=== PATIENT | male | born 1940 | race Caucasian/White ===

== ENCOUNTER 2018-02-02 13:03 | Inpatient (IN) | payer MEDICARE ==
[~2018-02-02] VITALS: Ht 177.8 cm; Wt 79.0 kg
[2018-02-02 13:29] LABS: BASOPHILS % (AUTO) 0.5 % (0.0-5.0); LYMPHOCYTES % (AUTO) 32.5 % (21.0-51.0); MEAN CORPUSCULAR HEMOGLOBIN 28.2 pg (27.0-33.0); MEAN CORPUSCULAR HGB CONC 33.8 g/dL (32.0-36.0); MEAN CORPUSCULAR VOLUME 83.3 fL (79-99); MONOCYTES % (AUTO) 7.7 % (3.0-13.0); NEUTROPHILS % (AUTO) 58.3 % (40.0-77.0); PLATELET COUNT (AUTO) 239 K/uL (130-400); RED BLOOD CELL COUNT(AUTO) 1.71 MIL/uL (4.50-6.20); RED CELL DISTRIBUTION WIDTH 18.4 % (11.0-15.5); WHITE BLOOD COUNT (AUTO) 6.3 K/uL (4.8-10.8)
[2018-02-02 13:39] LABS: CREATININE 1.4 mg/dL (0.5-1.5); POTASSIUM 4.3 mmol/L (3.5-5.1)
[2018-02-02 13:41] LABS: INR 1.09 (0.85-1.15); PARTIAL THROMBOPLASTIN TIME 28.1 SEC (26.3-35.5); PROTHROMBIN TIME 11.4 SEC (9.6-11.6)
[2018-02-02 13:49] LABS: HEMATOCRIT 14.3 % (42-54)
[2018-02-02 13:55] LABS: BILIRUBIN,TOTAL 0.3 mg/dL (0.2-1.0); CREATINE KINASE MB 1.1 ng/mL (0.5-3.6); TOTAL PROTEIN, SERUM 6.5 g/dL (6.0-8.3)
[2018-02-02] MEDS ORDERED: SODIUM CHLORIDE 0.9% 1000ML 1,000 ML IV ONE (14:40)
[2018-02-02] MEDS ORDERED: NITROGLYCERIN 0.4 MG SL TAB SL PRN (15:15)
[2018-02-02] MEDS ORDERED: GUAIFENESIN-DM 200/20 MG 10 ML PO PRN (15:15)
[2018-02-02] MEDS ORDERED: POTASSIUM CHLORIDE 20MEQ/100ML 100 ML IV PRN (15:15)
[2018-02-02] MEDS ORDERED: MORPHINE SULFATE 2 MG/ML 1ML SYG IV PRN (15:15)
[2018-02-02] MEDS ORDERED: MAG HYDROX/AL HYDROX/SIMETH ES 30 ML SUSP UDCUP PO PRN (15:15)
[2018-02-02] MEDS ORDERED: HYDRALAZINE HCL 20 MG/ML VIAL IV PRN (15:15)
[2018-02-02] MEDS ORDERED: ACETAMINOPHEN 325 MG TAB PO PRN ×2 (15:15)
[2018-02-02] MEDS ORDERED: LACTULOSE 20 GM/30 ML UDCUP PO PRN (15:15)
[2018-02-02] MEDS ORDERED: ACETAMINOPHEN-CODEINE 300/30MG TAB PO PRN ×2 (15:15)
[2018-02-02] MEDS ORDERED: ONDANSETRON HCL 4 MG/2 ML VIAL IV PRN (15:15)
[2018-02-02] MEDS ORDERED: LIDOCAINE HCL-MPF 1% 2ML VIAL IVP PRN (15:15)
[2018-02-02] MEDS ORDERED: POTASSIUM CHLORIDE 10% ELIXIR 20 MEQ/15 ML UDCUP PO PRN (15:15)
[2018-02-02 20:00] VITALS: BP 127/81
[2018-02-02] MEDS ORDERED: LISI1TAB11 PO (22:27)
[2018-02-02] MEDS ORDERED: PRAV20TA4 PO (22:27)
[2018-02-02] MEDS ORDERED: RIVA20TA PO (22:27)
[2018-02-02] MEDS: PANTOPRAZOLE SODIUM 80 MG in SODIUM CHLORIDE 0.9% 100 ML IV SCH (23:16)
[2018-02-02] MEDS: SODIUM CHLORIDE 0.9% 1000ML 1,000 ML IV SCH (23:19)
[2018-02-02 23:54] VITALS: BP 126/65
[2018-02-03] VITALS (20 sets, daily range): BP systolic 107–142; BP diastolic 57–74
[2018-02-03] MEDS ORDERED: SODIUM CHLORIDE 0.9% 250 ML IV ONE (00:01)
[2018-02-03] MEDS: SODIUM CHLORIDE 0.9% 1000ML 1,000 ML IV SCH (04:24)
[2018-02-03] MEDS: PANTOPRAZOLE SODIUM 80 MG in SODIUM CHLORIDE 0.9% 100 ML IV SCH ×2 (07:11→21:52)
[2018-02-03 07:18] LABS: CREATININE 1.4 mg/dL (0.5-1.5); POTASSIUM 4.1 mmol/L (3.5-5.1)
[2018-02-03 07:21] LABS: MEAN CORPUSCULAR HEMOGLOBIN 28.9 pg (27.0-33.0); MEAN CORPUSCULAR HGB CONC 34.2 g/dL (32.0-36.0); MEAN CORPUSCULAR VOLUME 84.6 fL (79-99); NUCLEATED RED BLOOD CELLS 0.1 % (0.0-0.19); PLATELET COUNT (AUTO) 196 K/uL (130-400); RED BLOOD CELL COUNT(AUTO) 2.95 MIL/uL (4.50-6.20); RED CELL DISTRIBUTION WIDTH 15.8 % (11.0-15.5); WHITE BLOOD COUNT (AUTO) 5.7 K/uL (4.8-10.8)
[2018-02-03] MEDS ORDERED: PROPOFOL 10 MG/ML 20ML VIAL IV ONE (08:04)
[2018-02-03] MEDS ORDERED: LIDOCAINE HCL 2% 20ML ONE (08:04)
[2018-02-03] MEDS ORDERED: EPINEPHRINE 1 MG/ML AMPULE ONE (08:16)
[2018-02-03] MEDS ORDERED: IPRATROPIUM/ALBUTEROL SULFATE 3 ML SOLUTION IH PRN (10:30)
[2018-02-03 18:56] LABS: HEMATOCRIT 23.6 % (42-54)
[2018-02-03] MEDS: ATORVASTATIN CALCIUM 10 MG TABLET PO SCH (20:42)
[2018-02-04 03:57] VITALS: BP 123/68
[2018-02-04 05:49] LABS: HEMATOCRIT 24.1 % (42-54); MEAN CORPUSCULAR HGB CONC 34.2 g/dL (32.0-36.0); MEAN CORPUSCULAR VOLUME 84.8 fL (79-99); PLATELET COUNT (AUTO) 159 K/uL (130-400); RED BLOOD CELL COUNT(AUTO) 2.84 MIL/uL (4.50-6.20); WHITE BLOOD COUNT (AUTO) 5.9 K/uL (4.8-10.8)
[2018-02-04 06:01] LABS: CREATININE 1.2 mg/dL (0.5-1.5); POTASSIUM 3.6 mmol/L (3.5-5.1)
[2018-02-04 08:11] VITALS: BP 124/62
[2018-02-04 12:04] VITALS: BP 138/84
[2018-02-04] MEDS: POTASSIUM CHLORIDE 20 MEQ ERTAB PO PRN ×2 (12:57→14:55)
[2018-02-04 16:14] VITALS: BP 150/78
[2018-02-04 19:55] VITALS: BP 139/81
[2018-02-04] MEDS: ATORVASTATIN CALCIUM 10 MG TABLET PO SCH (20:22)
[2018-02-04 23:35] VITALS: BP 156/64
[2018-02-05] MEDS: PANTOPRAZOLE SODIUM 80 MG in SODIUM CHLORIDE 0.9% 100 ML IV SCH (01:06)
[2018-02-05 04:00] VITALS: BP 154/80
[2018-02-05 05:38] LABS: HEMATOCRIT 22.5 % (42-54); MEAN CORPUSCULAR HEMOGLOBIN 30.2 pg (27.0-33.0); MEAN CORPUSCULAR HGB CONC 35.6 g/dL (32.0-36.0); MEAN CORPUSCULAR VOLUME 84.8 fL (79-99); PLATELET COUNT (AUTO) 151 K/uL (130-400); RED BLOOD CELL COUNT(AUTO) 2.66 MIL/uL (4.50-6.20); RED CELL DISTRIBUTION WIDTH 16.3 % (11.0-15.5); WHITE BLOOD COUNT (AUTO) 4.8 K/uL (4.8-10.8)
[2018-02-05 05:44] LABS: CREATININE 1.3 mg/dL (0.5-1.5); POTASSIUM 4.2 mmol/L (3.5-5.1)
[2018-02-05 08:05] VITALS: BP 152/87
[2018-02-05] MEDS ORDERED: LISINOPRIL 20 MG TABLET PO SCH (09:00)
[2018-02-05] MEDS ORDERED: HYDROCHLOROTHIAZIDE 25 MG TABLET PO SCH (09:00)
[2018-02-05] MEDS ORDERED: PANT40TA PO (09:57)
[2018-02-05 11:50] VITALS: BP 143/72
== END 2018-02-05 14:15 | disposition home or self-care (01) | DRG 378 ==
LOC: EDH 13:03 → EDHIP 15:05 → 3BH 19:42
PROVIDERS: ADMIT Internal Medicine; ATTEND Internal Medicine
PROC: 30233N1 Transfusion of Nonautologous Red Blood Cells into Peripheral Vein, Percutaneous Approach (ICD-10-PCS; principal; 2018-02-02)
PROC: 0DJ08ZZ Inspection of Upper Intestinal Tract, Via Natural or Artificial Opening Endoscopic (ICD-10-PCS; 2018-02-03)
DX: K92.2 Gastrointestinal hemorrhage, unspecified (principal); D62 Acute posthemorrhagic anemia; I48.91 Unspecified atrial fibrillation; Z79.01 Long term (current) use of anticoagulants; I10 Essential (primary) hypertension; E78.5 Hyperlipidemia, unspecified; K31.89 Other diseases of stomach and duodenum; F17.290 Nicotine dependence, other tobacco product, uncomplicated; Z88.0 Allergy status to penicillin
CPT/HCPCS: 36415; 36430; 71045; 80048; 80053; 82270; 82550; 82553; 83880; 84484; 85014; 85018; 85025; 85027; 85610; 85730; 86156; 86850; 86870; 86900; 86901; 86922; 93005; 94664; C9113; J0171; J2704; J3490; J7030; P9016

== ENCOUNTER 2018-11-12 08:52 | Day surgery (SDC) | payer MEDICARE ==
[2018-11-09 14:06] VITALS: BP 151/84
[2018-11-09 14:21] LABS: BASOPHILS % (AUTO) 0.6 % (0.0-5.0); EOSINOPHILS % (AUTO) 1.4 % (0.0-8.0); HEMATOCRIT 36.3 % (42-54); LYMPHOCYTES % (AUTO) 27.5 % (21.0-51.0); MEAN CORPUSCULAR HEMOGLOBIN 29.7 pg (27.0-33.0); MEAN CORPUSCULAR HGB CONC 33.5 g/dL (32.0-36.0); MEAN CORPUSCULAR VOLUME 88.7 fL (79-99); MONOCYTES % (AUTO) 7.4 % (3.0-13.0); NEUTROPHILS % (AUTO) 63.1 % (40.0-77.0); PLATELET COUNT (AUTO) 228 K/uL (130-400); RED BLOOD CELL COUNT(AUTO) 4.09 MIL/uL (4.50-6.20); RED CELL DISTRIBUTION WIDTH 15.6 % (11.0-15.5); WHITE BLOOD COUNT (AUTO) 6.3 K/uL (4.8-10.8)
[2018-11-09 14:29] LABS: CREATININE 1.5 mg/dL (0.5-1.5); POTASSIUM 4.1 mmol/L (3.5-5.1)
[2018-11-09 14:33] LABS: INR 1.02 (0.85-1.15); PARTIAL THROMBOPLASTIN TIME 29.7 SEC (26.3-35.5); PROTHROMBIN TIME 10.7 SEC (9.6-11.6)
[~2018-11-12] VITALS: Ht 175.3 cm; Wt 81.6 kg
[2018-11-12] VITALS (26 sets, daily range): BP systolic 117–145; BP diastolic 63–85
[~2018-11-12 08:52] MED LIST: ASPI-1181 PO; CLOP75TA14 PO; FERROUS GLUCONATE PO; HYDR25TA PO; LISI40TA4 PO; MAGNESIUM PO; METO25TA6 PO; MULT-1289 PO; OMEGA 3 KRILL OIL PO; OMEP20CA10 PO; PRAV20TA4 PO; PREVAGEN PO; SODIUM CHLORIDE 0.9% 1000ML 1,000 ML IV SCH; [UNRECOGNIZED DRUG - OTHER] PO
[2018-11-12] MEDS ORDERED: LIDOCAINE HCL 2% VISCOUS 15 ML UDCUP PO SCH (09:50)
[2018-11-12] MEDS ORDERED: FENTANYL CITRATE PF 50 MCG/1 ML 2ML VIAL ONE (09:57)
[2018-11-12] MEDS ORDERED: MIDAZOLAM HCL 1 MG/ML 2ML VIAL ONE (09:58)
[2018-11-12] MEDS ORDERED: NALOXONE HCL 0.4 MG/1 ML ML ONE (09:59)
[2018-11-12] MEDS ORDERED: FLUMAZENIL 0.1MG/1ML 5ML VIAL IV ONE (10:00)
[2018-11-12] MEDS ORDERED: LIDOCAINE HCL 2% VISCOUS 15 ML UDCUP ONE (10:02)
[2018-11-12] MEDS ORDERED: MIDAZOLAM HCL 1 MG/ML 5ML VIAL IVP ONE (12:00)
[2018-11-12] MEDS ORDERED: FENTANYL CITRATE PF 50 MCG/1 ML 2ML VIAL IVP ONE (12:30)
--- NOTE | 2018-11-12 15:08 | NUR ---
ATIYA TIME OUT 1227 MEDS - VISCOUS LIDOCAINE 2% 1228 FENTANYL 50MCG @ 1228, VERSED 1MG @ 1230 FENTANYL 50MCG @ 1235, VERSED 1MG @ 1237 VERSED 1MG @ 1239 START TIME 1240 STOP TIME 1255 RECOVERY 1255
== END 2018-11-12 15:25 | disposition home or self-care (01) ==
LOC: DAH 08:52
PROVIDERS: ATTEND Internal Medicine Cardiovascular Disease
DX: I48.2 Chronic atrial fibrillation (principal); I10 Essential (primary) hypertension; I48.92 Unspecified atrial flutter; Z79.899 Other long term (current) drug therapy; Z79.01 Long term (current) use of anticoagulants; Z98.890 Other specified postprocedural states; Z85.828 Personal history of other malignant neoplasm of skin; Z98.41 Cataract extraction status, right eye; Z98.42 Cataract extraction status, left eye; Z82.49 Family history of ischemic heart disease and other diseases of the circulatory system
CPT/HCPCS: 36415; 80048; 85025; 85610; 85730; 93313; A4606; J2250; J3010; 99152; 99153; J2310; J3490

== ENCOUNTER 2023-12-28 10:08 | Emergency (ER) | payer MEDICARE ==
[~2023-12-28] VITALS: Ht 177.8 cm; Wt 84.8 kg
[~2023-12-28 10:08] MED LIST changes: +AEC81 PO; +ALBUHFA IH; -ASPI-1181 PO; +CLOP-31 PO; -CLOP75TA14 PO; +EZET10TA48 PO; -FERROUS GLUCONATE PO; -HYDR25TA PO; +LEVO250T75 PO; +LISI20TA24 PO; -LISI40TA4 PO; +LISI40TA9 PO; -MAGNESIUM PO; -METO25TA6 PO; +METO50 PO; -MULT-1289 PO; -OMEGA 3 KRILL OIL PO; -OMEP20CA10 PO; +OXYM30SP27 EN; +PANT40TA54 PO; -PRAV20TA4 PO; +PRAV40TA3 PO; -PREVAGEN PO; -SODIUM CHLORIDE 0.9% 1000ML 1,000 ML IV SCH; -[UNRECOGNIZED DRUG - OTHER] PO
[2023-12-28] MEDS: OXYMETAZOLINE HCL SPRAY 15 ML BOTTLE EN SCH (11:32)
[2023-12-28 11:34] LABS: BASOPHILS # (AUTO) 0.05 K/uL (0.00-0.20); BASOPHILS % (AUTO) 0.8 % (0.0-5.0); EOSINOPHILS % (AUTO) 1.5 % (0.0-8.0); HEMATOCRIT 27.9 % (42-54); IMMATURE GRANULOCYTE ABSOLUTE 0.04 K/uL (0-1); LYMPHOCYTES # (AUTO) 1.1 K/uL (1.0-4.8); LYMPHOCYTES % (AUTO) 16.2 % (21.0-51.0); MEAN CORPUSCULAR HEMOGLOBIN 27.6 pg (27.0-33.0); MEAN CORPUSCULAR HGB CONC 31.2 g/dL (32.0-36.0); MEAN CORPUSCULAR VOLUME 88.6 fL (79-99); MONOCYTES # (AUTO) 0.5 K/uL (0.1-1.0); MONOCYTES % (AUTO) 8.3 % (3.0-13.0); NEUTROPHILS # (AUTO) 4.7 K/uL (1.8-7.7); NEUTROPHILS % (AUTO) 72.6 % (40.0-77.0); PLATELET COUNT (AUTO) 424 K/uL (130-400); RED BLOOD CELL COUNT(AUTO) 3.15 MIL/uL (4.50-6.20); RED CELL DISTRIBUTION WIDTH 15.2 % (11.0-15.5); WHITE BLOOD COUNT (AUTO) 6.5 K/uL (4.8-10.8)
[2023-12-28 11:47] LABS: PROTHROMBIN TIME 11.8 SEC (9.6-11.6)
[2023-12-28 11:48] LABS: CREATININE 1.3 mg/dL (0.5-1.3); POTASSIUM 3.9 mmol/L (3.5-5.1)
[2023-12-28] MEDS: 0.9%NACL 1000ML 1,000 ML IV ONE (12:09)
[2023-12-28] MEDS: LIDOCAINE 1%-EPI 1:100,000 20 ML VIAL ONE (13:54)
[2023-12-28] MEDS: LIDOCAINE 1%-EPI 1:100,000 20 ML VIAL IJ SCH (13:54)
[2023-12-28] MEDS: SILVER NITRATE APPLICATOR 1 SWAB TP ONE (14:45)
[2023-12-28] MEDS: SILVER NITRATE APPLICATOR 1 SWAB TP SCH (14:45)
[2023-12-28 16:17] VITALS: BP 132/70; PULSE 76; RESP 18; O2SAT 95
== END 2023-12-28 16:19 | disposition home or self-care (01) ==
LOC: EDH 10:08
DX: R04.0 Epistaxis (principal); E11.9 Type 2 diabetes mellitus without complications; E78.00 Pure hypercholesterolemia, unspecified; I10 Essential (primary) hypertension; Z79.02 Long term (current) use of antithrombotics/antiplatelets; Z79.82 Long term (current) use of aspirin; Z79.899 Other long term (current) drug therapy; Z88.0 Allergy status to penicillin
CPT/HCPCS: 99284; 96360; 80048; 85025; 85610; 36415; 93005; J3490; 96361

== ENCOUNTER → 2024-01-08 | Outpatient (CLI) | payer MEDICARE ==
[~2024-01-08] MED LIST changes: +AREDS PO; +CHOL100046 PO; +IOHEXOL 350 MG/ML 100ML INFUS..BTL IV ONE; +IRON PO; +KRIL1CAP19 PO; +METO25TA6 PO; +MVI PO; +OMEP-420 PO; +[UNRECOGNIZED DRUG - OTHER] PO
== END | disposition home or self-care (01) ==
LOC: RAH 07:54
PROVIDERS: ATTEND Internal Medicine Cardiovascular Disease
DX: I71.43 Infrarenal abdominal aortic aneurysm, without rupture (principal); K57.90 Diverticulosis of intestine, part unspecified, without perforation or abscess without bleeding; Z95.1 Presence of aortocoronary bypass graft
CPT/HCPCS: 74174; Q9967

== ENCOUNTER 2024-01-17 05:51 | Day surgery (SDC) | payer MEDICARE ==
[2024-01-15 10:51] LABS: BASOPHILS # (AUTO) 0.03 K/uL (0.00-0.20); BASOPHILS % (AUTO) 0.5 % (0.0-5.0); EOSINOPHILS # (AUTO) 0.15 K/uL (0.00-0.70); EOSINOPHILS % (AUTO) 2.7 % (0.0-8.0); HEMATOCRIT 27.3 % (42-54); IMMATURE GRANULOCYTE ABSOLUTE 0.03 K/uL (0-1); LYMPHOCYTES # (AUTO) 1.2 K/uL (1.0-4.8); LYMPHOCYTES % (AUTO) 21.8 % (21.0-51.0); MEAN CORPUSCULAR HEMOGLOBIN 26.9 pg (27.0-33.0); MEAN CORPUSCULAR HGB CONC 30.4 g/dL (32.0-36.0); MEAN CORPUSCULAR VOLUME 88.6 fL (79-99); MONOCYTES # (AUTO) 0.6 K/uL (0.1-1.0); MONOCYTES % (AUTO) 9.8 % (3.0-13.0); NEUTROPHILS # (AUTO) 3.6 K/uL (1.8-7.7); NEUTROPHILS % (AUTO) 64.7 % (40.0-77.0); PLATELET COUNT (AUTO) 418 K/uL (130-400); RED BLOOD CELL COUNT(AUTO) 3.08 MIL/uL (4.50-6.20); RED CELL DISTRIBUTION WIDTH 15.6 % (11.0-15.5); WHITE BLOOD COUNT (AUTO) 5.6 K/uL (4.8-10.8)
[2024-01-15 10:58] LABS: APPEARANCE,URINE CLEAR (CLEAR); BILIRUBIN,URINE NEGATIVE (NEGATIVE); COLOR,URINE YELLOW (YELLOW); GLUCOSE, URINE (UA) NEGATIVE (NEGATIVE); KETONES,URINE NEGATIVE (NEGATIVE); LEUKOCYTE ESTERASE ,URINE NEGATIVE Leu/uL (NEGATIVE); NITRATE,URINE NEGATIVE (NEGATIVE); OCCULT BLOOD,URINE NEGATIVE (NEGATIVE); PROTEIN,URINE 10 mg/dL (NEGATIVE); UROBILINOGEN,URINE 0.2 mg/dL (0.2-1.0)
[2024-01-15 10:59] LABS: CREATININE 1.2 mg/dL (0.5-1.3); POTASSIUM 4.5 mmol/L (3.5-5.1)
[2024-01-15 11:01] LABS: INR 1.01 (0.85-1.15); PROTHROMBIN TIME 11.9 SEC (9.6-11.6)
[2024-01-15 11:03] LABS: PARTIAL THROMBOPLASTIN TIME 30.8 SEC (26.3-35.5)
[2024-01-15 11:03] LABS: ADD UA MICROSCOPIC YES
[2024-01-15 11:07] LABS: RBC,URINE 0-1 /HPF (0-1); WBC,URINE 0-1 /HPF (0-1)
[2024-01-15 11:15] VITALS: BP 169/83; PULSE 65; RESP 16
[~2024-01-17] VITALS: Ht 175.3 cm; Wt 79.7 kg
[2024-01-17] VITALS (7 sets, daily range): BP systolic 116–141; BP diastolic 56–80; PULSE 60–65; RESP 12–21
[~2024-01-17 05:51] MED LIST changes: -AEC81 PO; -IOHEXOL 350 MG/ML 100ML INFUS..BTL IV ONE; -LEVO250T75 PO; -METO50 PO; -OXYM30SP27 EN; -PANT40TA54 PO
[2024-01-17] MEDS: 0.9%NACL 1000ML 1,000 ML IV ONE (06:44)
[2024-01-17] MEDS ORDERED: LIDOCAINE HCL 400MG/20ML VIAL ONE (07:34)
[2024-01-17] MEDS ORDERED: MEPERIDINE-PF 25 MG/ML SYG ONE ×3 (07:35→08:39)
[2024-01-17] MEDS ORDERED: IODIXANOL 320 MG/ML 100 ML VIAL ONE (07:35)
[2024-01-17] MEDS ORDERED: MIDAZOLAM HCL 1 MG/ML 2ML VIAL ONE ×3 (07:35→08:39)
[2024-01-17] MEDS ORDERED: SODIUM BICARB 50MEQ 50ML VIAL 50 ML ONE (07:35)
[2024-01-17] MEDS ORDERED: NITROGLYCERIN 50MG VIAL ONE (07:36)
[2024-01-17] MEDS ORDERED: HEPARIN 10,000 UNIT/10ML (1,000 UNIT/ML) VIAL ONE (07:36)
[2024-01-17] MEDS ORDERED: VANCOMYCIN 1G/250ML KIT 250 ML IV ONE (07:39)
[2024-01-17] MEDS ORDERED: 0.9%NACL 10ML VIAL IVP SCH (09:30)
[2024-01-17] MEDS ORDERED: 0.9%NACL 1000ML 1,000 ML IV ONE (14:24)
== END 2024-01-17 11:13 | disposition home or self-care (01) ==
LOC: DAH 05:51
PROVIDERS: ATTEND Internal Medicine Cardiovascular Disease
DX: I71.33 Infrarenal abdominal aortic aneurysm, ruptured (principal); I71.40 Abdominal aortic aneurysm, without rupture, unspecified; I73.9 Peripheral vascular disease, unspecified; I72.3 Aneurysm of iliac artery; I72.4 Aneurysm of artery of lower extremity; I10 Essential (primary) hypertension; F17.210 Nicotine dependence, cigarettes, uncomplicated; Z79.01 Long term (current) use of anticoagulants; Z90.89 Acquired absence of other organs; Z98.890 Other specified postprocedural states; Z90.49 Acquired absence of other specified parts of digestive tract; Z98.41 Cataract extraction status, right eye; Z98.42 Cataract extraction status, left eye; Z79.899 Other long term (current) drug therapy; Z82.49 Family history of ischemic heart disease and other diseases of the circulatory system; Z88.0 Allergy status to penicillin
CPT/HCPCS: 80048; 85025; 85610; 85730; 86850; 86900; 86922; 86901; 81001; 36415; 71045; 93005; 37221; 75710; C1769 ×2; C1894 ×3; C1874; C1760; C1893; J3490 ×3; J7030; J1644 ×2; J2250 ×3; J3370; J2175 ×3; Q9967; A4215 ×2; A4222; A4663; A4216; A4606; A4223 ×3; A4221; 99156; 99157